=== PATIENT | female | born 1975 | race Caucasian/White ===

== ENCOUNTER 2021-04-16 01:43 | Emergency (ER) | payer BC ==
[2021-04-16] MEDS ORDERED: DAILY VALUE1 EACH PO (02:09)
[2021-04-16 02:56] LABS: BASO # 0.01 (0.02-0.10); EOS # 0.01 (0.04-0.40); EOS % 0.1 % (1.0-5.0); HEMATOCRIT 39.9 % (37.0-47.0); HEMOGLOBIN 13.4 g/dL (12.5-16.0); LYMPH# 3.12 (1.50-4.00); MEAN CELL VOLUME 84 fl (78-100); MEAN CORPUSCULAR HEMOGLOBIN 28 pg (27-31); MEAN CORPUSCULAR HGB CONC 34 g/dL (33-37); MEAN PLATELET VOLUME 9.8 fl (7.4-10.4); MONO # 0.67 (0.20-0.80); NEU # 4.32 (1.40-6.50); PLATELET COUNT 286 K/mm3 (130-400); RED BLOOD COUNT 4.77 M/mm3 (4.10-5.30); RED CELL DISTRIBUTION WIDTH 13.7 % (11.5-14.5); WHITE BLOOD COUNT 8.1 K/mm3 (4.8-10.8)
[2021-04-16 03:05] LABS: ALBUMIN 4.3 g/dL (3.5-5.0); POTASSIUM 3.7 mmol/L (3.5-5.1); SODIUM 142 mmol/L (136-145)
[2021-04-16 03:06] LABS: CALCIUM 9.3 mg/dL (8.3-10.5)
[2021-04-16 03:07] LABS: GLUCOSE 96 mg/dL (65-105); TOTAL PROTEIN 7.6 g/dL (6.4-8.3)
[2021-04-16 03:08] LABS: CARBON DIOXIDE 23 mmol/L (22-29)
[2021-04-16 03:09] LABS: TOTAL BILIRUBIN 0.4 mg/dL (0.2-1.2)
[2021-04-16 03:12] LABS: AST-SGOT 41 U/L (5-34)
[2021-04-16 03:14] LABS: ALT/SGPT 68 U/L (0-55)
[2021-04-16 03:20] LABS: TROPONIN-I < 0.03 ng/mL (<0.030)
[2021-04-16 03:22] LABS: URINE APPEARANCE CLEAR; URINE BILIRUBIN NEGATIVE (NEGATIVE); URINE BLOOD NEGATIVE (NEGATIVE); URINE COLOR YELLOW; URINE GLUCOSE NEGATIVE (NEGATIVE); URINE KETONE NEGATIVE (NEGATIVE); URINE LEUKOCYTE ESTERASE NEGATIVE (NEGATIVE); URINE NITRATE NEGATIVE (NEGATIVE); URINE PROTEIN(semi-quant) NEGATIVE (NEGATIVE); URINE UROBILINOGEN NORMAL (NORMAL)
[2021-04-16] MEDS ORDERED: METOPROLOL SUCC50 M1 PO (08:27)
[2021-04-16 08:36] VITALS: BP 179/92
== END 2021-04-16 08:44 | disposition home or self-care (01) ==
LOC: ED 01:43
PROVIDERS: Family Medicine
DX: R07.89 Other chest pain (principal); I10 Essential (primary) hypertension; M79.602 Pain in left arm

== ENCOUNTER → 2021-06-02 | Outpatient (CLI) | payer BC ==
[~2021-06-02] MED LIST: DAILY VALUE1 EACH PO; METOPROLOL SUCC50 M1 PO
== END ==
LOC: RAD 05-23 07:00
DX: R10.11 Right upper quadrant pain (principal)

== ENCOUNTER → 2021-08-08 | Outpatient (REF) | LOC: LAB 10:03 | DX: Z00.00 Encounter for general adult medical examination without abnormal findings (principal) ==

== ENCOUNTER → 2021-08-22 | Outpatient (CLI) | payer BC | LOC: MAMMO 15:15 | DX: Z12.31 Encounter for screening mammogram for malignant neoplasm of breast (principal) ==